=== PATIENT | female | born 1990 | race Two or more races ===

== ENCOUNTER 2019-12-22 10:00 | Emergency (ER) | payer OTHER ==
[~2019-12-22] VITALS: Ht 167.6 cm; Wt 83.0 kg
[2019-12-22] MEDS ORDERED: ACETAMINOPHEN 325MG TABLET PO ONE (10:45)
[2019-12-22 11:53] VITALS: BP 110/58
== END 2019-12-22 12:00 | disposition home or self-care (01) ==
LOC: ER 10:00
DX: M79.18 Myalgia, other site (principal); F17.200 Nicotine dependence, unspecified, uncomplicated; Y08.89XA Assault by other specified means, initial encounter; Y93.9 Activity, unspecified; Y92.9 Unspecified place or not applicable
CPT/HCPCS: 70486; 71111; 99285